=== PATIENT | female | born 1965 | race Caucasian/White ===

== ENCOUNTER 2021-05-28 18:26 | Emergency (ER) | payer OTHER ==
[2021-05-28 18:42] VITALS: BP 157/70
[2021-05-28] MEDS ORDERED: AMOXICILLIN500 MG PO (18:56)
[2021-05-28] MEDS ORDERED: NAPROXEN500 MG PO (18:56)
== END 2021-05-28 19:20 | disposition home or self-care (01) | DRG 605 ==
LOC: ED 18:26
PROC: 0HQEXZZ Repair Left Lower Arm Skin, External Approach (ICD-10-PCS; principal; 2021-05-28)
DX: S61.512A Laceration without foreign body of left wrist, initial encounter (principal); I10 Essential (primary) hypertension; X58.XXXA Exposure to other specified factors, initial encounter

== ENCOUNTER 2021-05-28 20:14 | Emergency (ER) | payer OTHER ==
[~2021-05-28] VITALS: Ht 152.4 cm; Wt 47.0 kg
[~2021-05-28 20:14] MED LIST: AMOXICILLIN500 MG PO; NAPROXEN500 MG PO
[2021-05-29 00:10] VITALS: BP 144/78
== END 2021-05-29 00:10 | disposition home or self-care (01) | DRG 950 ==
LOC: ED 20:14
PROC: 0HQEXZZ Repair Left Lower Arm Skin, External Approach (ICD-10-PCS; principal; 2021-05-28)
DX: S61.512D Laceration without foreign body of left wrist, subsequent encounter (principal); X58.XXXD Exposure to other specified factors, subsequent encounter; I10 Essential (primary) hypertension